=== PATIENT | male | born 1940 | race Hispanic/Latino ===

== ENCOUNTER 2020-07-04 09:58 | Day surgery (SDC) | payer OTHER ==
[2020-07-01 12:22] LABS: BASOPHILS % (AUTO) 0.7 % (0.0-5.0); EOSINOPHILS % (AUTO) 3.8 % (0.0-8.0); HEMATOCRIT 38.4 % (42-54); LYMPHOCYTES % (AUTO) 20.4 % (21.0-51.0); MEAN CORPUSCULAR HEMOGLOBIN 31.3 pg (27.0-33.0); MEAN CORPUSCULAR HGB CONC 32.8 g/dL (32.0-36.0); MEAN CORPUSCULAR VOLUME 95.5 fL (79-99); MONOCYTES % (AUTO) 11.8 % (3.0-13.0); NEUTROPHILS % (AUTO) 63.1 % (40.0-77.0); PLATELET COUNT (AUTO) 194 K/uL (130-400); RED BLOOD CELL COUNT(AUTO) 4.02 MIL/uL (4.50-6.20); RED CELL DISTRIBUTION WIDTH 12.7 % (11.0-15.5); WHITE BLOOD COUNT (AUTO) 4.4 K/uL (4.8-10.8)
[2020-07-01 12:30] LABS: CREATININE 0.8 mg/dL (0.5-1.5); POTASSIUM 4.8 mmol/L (3.5-5.1)
[2020-07-03 10:44] VITALS: BP 140/70
[~2020-07-04] VITALS: Ht 167.6 cm; Wt 48.7 kg
[2020-07-04] VITALS (17 sets, daily range): BP systolic 149–167; BP diastolic 63–86
[~2020-07-04 09:58] MED LIST: AEC81 PO; ATOR10 PO; CARV6.25 PO; CEFTRIAXONE SODIUM 1 GM IVP ONE; FISH12002 PO; GENTAMICIN 80 MG/NS 100 ML PB 100 ML IV SCH; METF-445 PO; SACU1TAB7 PO; TAMS-1 PO; VITA100C27 PO; VITAMIN D3 PO
[2020-07-04] MEDS ORDERED: SODIUM CHLORIDE 0.9% 1000ML 1,000 ML IV ONE (11:10)
[2020-07-04] MEDS ORDERED: CEFTRIAXONE SODIUM 1 GM ONE (11:10)
[2020-07-04] MEDS ORDERED: GENTAMICIN 80 MG/NS 100 ML PB 100 ML IV ONE (11:10)
[2020-07-04] MEDS ORDERED: LIDOCAINE PF 100MG/5ML (2%) SYRINGE 5ML ONE (12:15)
[2020-07-04] MEDS ORDERED: FENTANYL CITRATE PF 50 MCG/1 ML 2ML VIAL ONE (12:15)
[2020-07-04] MEDS ORDERED: PROPOFOL 10 MG/ML 20ML VIAL IV ONE (12:15)
[2020-07-04] MEDS ORDERED: MIDAZOLAM HCL 1 MG/ML 2ML VIAL ONE (12:46)
[2020-07-04] MEDS ORDERED: EPHEDRINE SULFATE 50 MG/ML AMPULE ONE (12:47)
[2020-07-04] MEDS ORDERED: ALBUMIN (HUMAN) 5% 250 ML IV ONE (13:07)
[2020-07-04] MEDS ORDERED: ROCURONIUM 10MG/1ML SYR 10 MG/ML ML ONE (13:36)
[2020-07-04] MEDS ORDERED: DEXAMETHASONE SOD PHOSPHATE 10MG/ML 1ML VIAL ONE (13:43)
[2020-07-04] MEDS ORDERED: OPIUM/BELLADONNA ALKALOIDS 1 EACH SUPP.RECT RC ONE (13:47)
[2020-07-04] MEDS ORDERED: SUGAMMADEX SODIUM 200 MG/2 ML VIAL IV ONE (13:47)
[2020-07-04] MEDS ORDERED: PHENYLEPHRINE HCL 10 MG/ML 1ML VIAL IV ONE (13:56)
[2020-07-04] MEDS ORDERED: PHENAZOPYRIDINE HCL 200 MG TABLET ONE (15:30)
== END 2020-07-04 16:35 | disposition home or self-care (01) ==
LOC: DAH 09:58
PROVIDERS: ATTEND Urology
DX: N40.1 Benign prostatic hyperplasia with lower urinary tract symptoms (principal); Z20.822 Contact with and (suspected) exposure to COVID-19; N39.498 Other specified urinary incontinence; R39.14 Feeling of incomplete bladder emptying; R35.1 Nocturia; I11.0 Hypertensive heart disease with heart failure; I50.9 Heart failure, unspecified; J45.909 Unspecified asthma, uncomplicated; I25.2 Old myocardial infarction; K21.9 Gastro-esophageal reflux disease without esophagitis; E11.9 Type 2 diabetes mellitus without complications; Z79.01 Long term (current) use of anticoagulants; Z95.1 Presence of aortocoronary bypass graft; Z98.42 Cataract extraction status, left eye; Z98.41 Cataract extraction status, right eye; Z98.890 Other specified postprocedural states; Z79.82 Long term (current) use of aspirin; Z79.84 Long term (current) use of oral hypoglycemic drugs; Z79.899 Other long term (current) drug therapy
CPT/HCPCS: 36415; 52648; 80048; 82948 ×2; 85025; 93005; A4215; A4221; A4222; A4223; A4358 ×2; A4495; A4600; A4663; C9803; J0696; J1100; J1580; J2001; J2250; J2370; J2704; J3010; J3490; J7030 ×2; P9045; U0003